=== PATIENT | male | born 1955 | race Two or more races ===

== ENCOUNTER 2022-12-23 05:44 | Day surgery (SDC) | payer MEDICARE, MEDICAID ==
[2022-12-18 14:49] LABS: BASOPHILS # (AUTO) 0.1 X10'3 (0-0.2); BASOPHILS % (AUTO) 0.7 % (0-1); EOSINOPHILS # (AUTO) 0.1 X10'3 (0-0.9); EOSINOPHILS % (AUTO) 1.1 % (0-6); HEMATOCRIT 43.4 % (42.0-52.0); HEMOGLOBIN 14.3 g/dl (14.0-17.9); LYMPHOCYTES % (AUTO) 26.1 % (21-51); MEAN CORPUSCULAR HEMOGLOBIN 31.4 PG (27.0-31.0); MEAN CORPUSCULAR HGB CONC 32.8 g/dL (33.0-36.5); MEAN CORPUSCULAR VOLUME 95.6 FL (78-98); MEAN PLATELET VOLUME 7.5 FL (7.4-10.4); MONOCYTES # (AUTO) 0.8 X10'3 (0-0.9); MONOCYTES % (AUTO) 10.2 % (2-12); NEUTROPHILS # (AUTO) 4.8 X10'3 (1.8-7.7); NEUTROPHILS % (AUTO) 61.9 % (42-75); PLATELET COUNT 258 X10'3 (140-440); RED BLOOD COUNT 4.55 X10'6 (4.70-6.10); RED CELL DISTRIBUTION WIDTH 16.2 % (11.5-14.5); WHITE BLOOD COUNT 7.7 X10'3 (4.5-11.0)
[2022-12-18 14:55] LABS: APTT 29 SECONDS (22-32)
[2022-12-18 15:08] LABS: ALANINE AMINOTRANSFERASE 33 U/L (12-78); ALBUMIN 3.7 G/DL (3.4-5.0); ALBUMIN/GLOBULIN RATIO 0.9 (1.1-1.5); ALKALINE PHOSPHATASE 105 IU/L (46-116); ANION GAP 6 (8-16); ASPARTATE AMINO TRANSFERASE 19 U/L (10-37); BILIRUBIN,TOTAL 0.2 MG/DL (0.1-1.0); BLOOD UREA NITROGEN 25 MG/DL (7-18); BUN/CREATININE RATIO 22.1 (10.0-20.0); CALCIUM 8.9 MG/DL (8.5-10.1); CHLORIDE 106 MMOL/L (99-107); CREATININE 1.13 MG/DL (0.60-1.10); GLUCOSE 87 MG/DL (70-104); POTASSIUM 4.1 MMOL/L (3.5-5.1); SODIUM 139 MMOL/L (135-145); TOTAL CARBON DIOXIDE 26.7 MMOL/L (24-32); TOTAL PROTEIN 7.8 G/DL (6.4-8.2); eGFR 65 ML/MIN
[2022-12-23] VITALS (7 sets, daily range): BP systolic 115–129; BP diastolic 68–83
[~2022-12-23] VITALS: Ht 165.1 cm; Wt 95.6 kg
[~2022-12-23 05:44] MED LIST: ABAC1TAB14 PO; ASPI-529 PO; CLOP75TA34 PO; DOCU-391 PO; DOCUMENT DATE & TIME OF BETA-BLOCKER PO ONE; HYDR-3968 PO; LISI20TA28 PO; METO-411 PO; ROSU40TA22 PO; famotidine 20mg tablet PO ONE; ringers solution, lacted 1,000 ML IV SCH
[2022-12-23] MEDS ORDERED: BUPIVAcaine/PF 2.5 mg/ml (0.25%) 30ml vial ONE (06:36)
[2022-12-23] MEDS ORDERED: cefazolin 2gm/D5W 100mL 100 ML IV ONE (07:00)
[2022-12-23] MEDS ORDERED: sevoflurane 250ml liquid IH ONE (08:31)
[2022-12-23] MEDS ORDERED: cloNIDine hcl/PF 100mcg/ml inj ONE (08:32)
[2022-12-23] MEDS ORDERED: midazolam 1 mg/ML 2ml injection ONE (08:34)
[2022-12-23] MEDS ORDERED: fentaNYL /PF 50mcg/ml 5ml ampule ONE (08:34)
[2022-12-23] MEDS ORDERED: ROPIVAcaine 0.5% (5mg/ml) 30ml vial ONE (09:08)
[2022-12-23] MEDS ORDERED: ePHEDrine 50MG/ML INJ. ONE (09:08)
[2022-12-23] MEDS ORDERED: rocuronium 10mg/ml inj IV ONE (09:08)
[2022-12-23] MEDS ORDERED: propofol inj 20 ML IV ONE (09:08)
[2022-12-23] MEDS ORDERED: LIDOcaine 2% (20mg/ml) 5ml vial ONE (09:08)
[2022-12-23] MEDS ORDERED: 0.9 % SODIUM CHLORIDE 10 ML VIAL ONE (09:08)
[2022-12-23] MEDS ORDERED: dexamethasone sod phosphate 4mg/ml inj. ONE ×2 (09:08→09:17)
[2022-12-23] MEDS ORDERED: LIDOcaine 1%/PF 5ML 10 MG/ML VIAL ONE (09:08)
[2022-12-23] MEDS ORDERED: ondansetron/PF 4mg/2ml inj ONE (09:17)
[2022-12-23] MEDS ORDERED: neostigmine methylsulfate 1 MG/ML 10ml vial ONE (10:16)
[2022-12-23] MEDS ORDERED: glycopyrrolate 0.2mg/ml inj ONE (10:17)
[2022-12-23] MEDS ORDERED: HYDROcodone/acetaminophen 10/325mg tab PO PRN (10:25)
--- NOTE | 2022-12-23 10:29 | NUR ---
Received from OR via BED, accompanied by Anesthesiologist DR. WEBBER and report given by Anesthesiolgist. DENIES PAIN, V/S WNL, SCD ON , PIV 20G LEFT FOREARM, DRESSING SHOULDER WRAP TO RIGHT SIDE CDI, COLD POWDER PACK.
[2022-12-23] MEDS ORDERED: ringers solution, lacted 1,000 ML IV SCH (10:30)
[2022-12-23] MEDS ORDERED: meperidine/PF 25mg/ml syringe IV PRN ×3 (10:30)
[2022-12-23] MEDS ORDERED: labetalol 20mg/4ml (5mg/ml) syringe IV PRN (10:30)
[2022-12-23] MEDS ORDERED: acetaminophen 1,000mg/100ml IV 100 ML IV PRN (10:30)
[2022-12-23] MEDS ORDERED: hydrALAZINE 20mg/ml inj. IV PRN (10:30)
[2022-12-23] MEDS ORDERED: morphine 2 MG/ML inj. syringe IV PRN (10:30)
[2022-12-23] MEDS ORDERED: proCHLORperazine 10 MG/2 ml inj IV PRN (10:30)
[2022-12-23] MEDS ORDERED: ondansetron/PF 4mg/2ml inj IV PRN (10:30)
[2022-12-23] MEDS ORDERED: ketorolac trometh. 30mg/ml inj. IV ONE (10:30)
[2022-12-23] MEDS ORDERED: morphine 4 MG/ML inj SYRINge IV PRN (10:30)
--- NOTE | 2022-12-23 11:39 | NUR ---
DC HOME: ALL DISCHARGE CRITERIA HAS BEEN MET. VSS, PAIN AT A TOLERABLE LEVEL, ABLE TO SAFELY AMBULATE AND TRANSFER SELF. IV TAKEN OUT WITHOUT ANY COMPLICATIONS. ALL DISCHARGE INSTRUCTIONS COVERED WITH PATIENT AND ALL QUESTIONS ANSWERED. PATIENT TAKEN OUT VIA WHEELCHAIR TO PERSONAL VEHICLE WHERE FRIEND, XAVIER, DROVE PATIENT HOME WITH ALL BELONGINGS.
--- NOTE | 2022-12-24 12:25 | NUR ---
CALLED PT THIS MORNING FOR CALL BACK CHECK. PT STATED HE WAS HAVING DIFFICULTY VOIDING SINCE HIS D/C YESTERDAY AND HAS ONLY BEEN ABLE TO VOID SMALL DROPS AT A TIME. I TOLD HIM HE NEEDED TO COME BACK TO THE HOSPITAL AND GET A BLADDER SCAN, PT WAS GOING TO SEE IF HE COULD GET A RIDE. HE CALLED BACK AND SAID HE COULD NOT GET A RIDE, HE WAS TOLD HE NEEDED TO CALL 911 AND COME IN AND GET CHECKED. HE SAID HE WOULD. Addendum: 12/24/22 at 1228 by Nichelle Hay RN Amended: Links added.
[2022-12-24] MEDS ORDERED: SILO4CAP3 PO (13:07)
== END 2022-12-23 11:39 | disposition home or self-care (01) ==
LOC: PAS 05:44
PROVIDERS: ATTEND Orthopaedic Surgery
DX: M19.011 Primary osteoarthritis, right shoulder (principal); M75.41 Impingement syndrome of right shoulder; M75.51 Bursitis of right shoulder; M75.111 Incomplete rotator cuff tear or rupture of right shoulder, not specified as traumatic; M65.811 Other synovitis and tenosynovitis, right shoulder; M18.11 Unilateral primary osteoarthritis of first carpometacarpal joint, right hand; M19.031 Primary osteoarthritis, right wrist; G47.33 Obstructive sleep apnea (adult) (pediatric); I10 Essential (primary) hypertension; E11.9 Type 2 diabetes mellitus without complications; I25.2 Old myocardial infarction; E66.9 Obesity, unspecified; Z68.34 Body mass index [BMI] 34.0-34.9, adult; G89.18 Other acute postprocedural pain; Z79.01 Long term (current) use of anticoagulants; Z79.82 Long term (current) use of aspirin; Z79.899 Other long term (current) drug therapy; Z88.0 Allergy status to penicillin; Z88.8 Allergy status to other drugs, medicaments and biological substances; Z98.890 Other specified postprocedural states; Z87.891 Personal history of nicotine dependence; Z95.5 Presence of coronary angioplasty implant and graft; Z98.1 Arthrodesis status
CPT/HCPCS: 29824; 29826; 36415; 64415; 80053; 82948; 85025; 85610; 85730; J0690; J0735; J1100; J2250; J2405; J2704; J2710; J2795; J3010; J3490; J7120; Z7506; Z7508; Z7512; A4565; A4618; A6449; A7000

== ENCOUNTER 2022-12-24 11:26 | Emergency (ER) | payer MEDICARE, MEDICAID ==
[~2022-12-24] VITALS: Ht 165.1 cm; Wt 92.0 kg
[~2022-12-24 11:26] MED LIST changes: -DOCUMENT DATE & TIME OF BETA-BLOCKER PO ONE; -famotidine 20mg tablet PO ONE; -ringers solution, lacted 1,000 ML IV SCH
[2022-12-24 11:29] VITALS: BP 170/107
[2022-12-24] MEDS ORDERED: LIDOcaine 2% 10ml TOPICAL JELLY (Urojet) MM ONE (11:30)
[2022-12-24] MEDS ORDERED: LidoCAINE 2% Topical Jelly 11mL syringe MM ONE (11:40)
[2022-12-24 11:57] LABS: CLARITY,URINE CLEAR (Clear); COLOR,URINE YELLOW (Yellow); GLUCOSE, URINE NEGATIVE (Neg); KETONES,URINE NEGATIVE (Neg); LEUKOCYTE ESTERASE ,URINE NEGATIVE (Neg); NITRITES, URINE NEGATIVE (Neg); OCCULT BLOOD,URINE TRACE-INTACT (Neg); PROTEIN,URINE NEGATIVE (Neg); UROBILINOGEN,URINE 0.2 E.U/dL (0.2-1.0)
[2022-12-24 12:04] LABS: UA COLLECTION TYPE FOLEY CATH
[2022-12-24 12:05] LABS: BACTERIA,URINE NONE SEEN /HPF (Neg); MUCUS STRANDS NONE SEEN /LPF (Neg); SQUAMOUS EPITHELIAL CELL,UR NONE SEEN /LPF (FEW); WBC,URINE 0-4 /HPF (0-4)
[2022-12-24] MEDS ORDERED: SILO4CAP3 PO (13:07)
== END 2022-12-24 13:50 | disposition home or self-care (01) ==
LOC: ER 11:27
DX: R33.9 Retention of urine, unspecified (principal); Z88.0 Allergy status to penicillin; Z88.8 Allergy status to other drugs, medicaments and biological substances; Z79.899 Other long term (current) drug therapy; Z79.1 Long term (current) use of non-steroidal anti-inflammatories (NSAID); Z79.2 Long term (current) use of antibiotics
CPT/HCPCS: 51702; 81001; 99284; A4358